=== PATIENT | female | born 1995 | race African-American/Black ===

== ENCOUNTER 2024-05-28 19:09 | Emergency (ER) | payer BC ==
[~2024-05-28] VITALS: Ht 157.5 cm; Wt 62.1 kg
[2024-05-28 19:32] VITALS: BP 109/62; PULSE 76; RESP 18; TEMP 98.6; O2SAT 98
[2024-05-28] MEDS: FLUORESCEIN OPTH STRIP 1 MG OP ONE (20:15)
[2024-05-28] MEDS: TETRACAINE HCL/PF 0.5% OPTH 4 ML BTL OP ONE (20:15)
[2024-05-28] MEDS ORDERED: FLUORESCEIN OPTH STRIP 1 MG ONE (21:17)
[2024-05-28] MEDS ORDERED: TETRACAINE HCL/PF 0.5% OPTH 4 ML BTL ONE (21:18)
[2024-05-28] MEDS ORDERED: KETOROLAC 30 MG/ML VIAL ONE (21:54)
[2024-05-28] MEDS ORDERED: HYDROcodone/APAP 5/325 MG 1 TAB TAB ONE (21:54)
[2024-05-28] MEDS: KETOROLAC 30 MG/ML VIAL IM ONE (22:00)
[2024-05-28] MEDS: HYDROcodone/APAP 5/325 MG 1 TAB TAB PO ONE (22:03)
[2024-05-28] MEDS ORDERED: ACET-8905 PO (23:02)
[2024-05-28 23:38] VITALS: BP 103/69; PULSE 78; RESP 20; TEMP 98.6; O2SAT 98
== END 2024-05-28 23:38 | disposition home or self-care (01) ==
LOC: MED 19:09
DX: R51.9 Headache, unspecified (principal); Z79.899 Other long term (current) drug therapy
CPT/HCPCS: 81025; 96372; 99284; J1885